=== PATIENT | male | born 1965 | race Two or more races ===

== ENCOUNTER 2022-07-16 11:23 | Emergency (ER) | payer MEDICARE, MEDICAID ==
[~2022-07-16] VITALS: Ht 175.3 cm; Wt 73.5 kg
[2022-07-16 11:47] VITALS: BP 136/89
[2022-07-16] MEDS ORDERED: cefTRIAXone SOD 1,000 MG VL IM ONE (14:00)
[2022-07-16] MEDS ORDERED: methylPREDNISolone SOD SUCC 125 MG/2 ML VL IM ONE (14:00)
[2022-07-16] MEDS ORDERED: METH4PAK PO (14:16)
[2022-07-16] MEDS ORDERED: AZIT500T66 PO (14:16)
== END 2022-07-16 14:29 | disposition home or self-care (01) ==
LOC: ER 11:23
DX: J03.90 Acute tonsillitis, unspecified (principal); Z88.6 Allergy status to analgesic agent
CPT/HCPCS: 96372; 99284; J0696; J2930